=== PATIENT | male | born 1950 ===

== ENCOUNTER 2017-06-12 10:46 | Emergency (ER) | payer OTHER ==
[~2017-06-12] VITALS: Ht 162.6 cm; Wt 78.0 kg
[2017-06-12] MEDS ORDERED: TAMS0.4C (10:57)
== END 2017-06-12 18:08 | disposition home or self-care (01) ==
LOC: ER 10:46
DX: G43.819 Other migraine, intractable, without status migrainosus (principal); G44.82 Headache associated with sexual activity

== ENCOUNTER 2017-08-20 13:16 | Outpatient (CLI) | payer OTHER ==
[~2017-08-20 13:16] MED LIST: TAMS0.4C
== END 2017-08-20 13:18 | disposition home or self-care (01) ==
LOC: NUCLEAR 13:16
DX: G45.8 Other transient cerebral ischemic attacks and related syndromes (principal)
CPT/HCPCS: 78607; A9557

== ENCOUNTER 2018-04-29 09:05 | Outpatient (CLI) | payer OTHER | END 2018-04-29 09:08 | disposition home or self-care (01) | LOC: RAD 501 09:05 | DX: N40.1 Benign prostatic hyperplasia with lower urinary tract symptoms (principal); Z01.818 Encounter for other preprocedural examination ==

== ENCOUNTER 2022-02-22 15:31 | Outpatient (CLI) | payer OTHER | END 2022-02-22 15:36 | disposition home or self-care (01) | LOC: RAD 15:31 | PROVIDERS: ATTEND General Practice | DX: R05.9 Cough, unspecified (principal) ==

== ENCOUNTER 2022-03-29 21:45 | Emergency (ER) | payer OTHER ==
[~2022-03-29] VITALS: Ht 162.6 cm; Wt 72.6 kg
[2022-03-29] MEDS ORDERED: COZAAR25 MG (23:00)
[2022-03-30] MEDS ORDERED: CEPHALEXIN500 MG PO (02:26)
[2022-03-30] MEDS ORDERED: RELAFEN DS1000 MG PO (02:26)
== END 2022-03-30 03:47 ==
LOC: ER 21:45
DX: S01.01XA Laceration without foreign body of scalp, initial encounter (principal); S49.82XA Other specified injuries of left shoulder and upper arm, initial encounter; W19.XXXA Unspecified fall, initial encounter; Y93.89 Activity, other specified; Y92.098 Other place in other non-institutional residence as the place of occurrence of the external cause; G89.11 Acute pain due to trauma; M25.512 Pain in left shoulder